=== PATIENT | male | born 1950 | race Caucasian/White ===

== ENCOUNTER 2017-09-28 08:20 | Emergency (ER) | payer MEDICARE ==
[~2017-09-28] VITALS: Ht 175.3 cm; Wt 72.6 kg
[2017-09-28] MEDS ORDERED: cloNIDine HCL 0.1 MG TABLET PO ONE (09:00)
[2017-09-28 09:04] LABS: BASO # 0.1 x10^3/uL (0.0-0.2); BASO % 1 % (0-3); EOS # 0.2 x10^3/uL (0.0-0.7); EOS % 3 % (0-3); HEMATOCRIT 44.7 % (39.0-53.0); HEMOGLOBIN 15.6 g/dL (13.0-17.5); LYMPH # 1.2 x10^3/uL (1.0-4.8); LYMPH % 20 % (24-48); MEAN CORPUSCULAR HEMOGLOBIN 35 pg (25-35); MEAN CORPUSCULAR HGB CONC 35 g/dL (31-37); MEAN CORPUSCULAR VOLUME 101 fL (79-100); MONO # 0.8 x10^3/uL (0.0-1.1); MONO % 12 % (0-9); NEUT % 64 % (31-73); PLATELET COUNT 212 x10^3/uL (140-400); RED BLOOD COUNT 4.44 x10^6/uL (4.30-5.70); RED CELL DISTRIBUTION WIDTH 13.5 % (11.5-14.5); WHITE BLOOD COUNT 6.2 x10^3/uL (4.0-11.0)
--- NOTE | 2017-09-28 09:16 | RAD ---
CHEST PA LATERAL History: Increased blood pressure, chest pain Comparison: None. Findings: The cardiomediastinal silhouette is normal. Pulmonary vasculature is normal. The lungs are clear. No pleural effusion or pneumothorax is seen. There is no acute bone abnormality. IMPRESSION: No acute cardiopulmonary process. Electronically signed by: Sukumar Santiago MD (09/28/2017 9:12 AM) [id number]
[2017-09-28 09:18] LABS: ALBUMIN 3.8 g/dL (3.4-5.0); ALBUMIN/GLOBULIN RATIO 1.1 (1.0-1.7); CALCIUM 9.3 mg/dL (8.5-10.1); CREATININE 1.5 mg/dL (0.7-1.3); TOTAL BILIRUBIN 1.4 mg/dL (0.2-1.0); TOTAL PROTEIN 7.3 g/dL (6.4-8.2)
[2017-09-28 10:06] VITALS: BP 136/80
--- NOTE | 2017-09-28 10:36 | ED.ADGEN ---
Past History Past Medical History: Hypertension Past Surgical History: No Surgical History Alcohol Use: Occasionally Drug Use: None Adult General Chief Complaint Chief Complaint Chest pain, headache HPI HPI Patient is a 67-year-old male with history of hypertension who presents with headache, chest pressure and high blood pressure. Patient states his blood pressure is been elevated despite the past several weeks despite compliance with pressure was medication. This morning, the patient checked his blood pressure which was greater than1 90/100. Patient took his blood pressure medication drove to work and feels shaky and dizzy. He then developed mild posterior headache and chest pressure. Patient then took an extra dose medication and proceeded to recheck his blood pressure several times. Reports blood reading as high as 240/120 prompting him to come to the emergency department. Symptoms have improved prior to ED arrival. No other acute symptoms or complaints. Patient is a nonsmoker, nondiabetic, and denies history of coronary disease. Review of Systems Review of Systems ROS as per HPI All other systems were reviewed and found to be within normal limits, except as documented in this note. Current Medications Current Medications Current Medications Medications (Trade) Dose Ordered Sig/Ollie Start Time Stop Time Status Last Admin Dose Admin Clonidine HCl (Catapres) 0.2 mg 1X ONCE 09/28/17 09:00 09/28/17 09:01 DC 09/28/17 08:44 0.2 MG Allergies Allergies Allergies Coded Allergies Type Severity Reaction Last Updated Verified No Known Drug Allergies 09/28/17 No Physical Exam Physical Exam Constitutional: Well developed, well nourished, no acute distress, non-toxic appearance. [] HENT: Normocephalic, atraumatic, bilateral external ears normal, oropharynx moist,, nose normal. [] Eyes: PERRLA, EOMI, conjunctiva normal, no discharge. [] Neck: Normal range of motion, no tenderness, supple, no stridor. [] Cardiovascular:Heart rate regular rhythm, no murmur or gallops clicks or rubs. Negative Homans signs. I told him I have a set I told him I assured him that [] Lungs & Thorax: Patient's nonlabored mildly diminished but otherwise clear.[] Abdomen: Bowel sounds normal, soft, no tenderness. [] Skin: Warm, dry. [] Back: No tenderness. [] Extremities: No tenderness. [] Neurologic: Alert and oriented X 3, normal motor function, normal sensory function, no focal deficits noted. [] Psychologic: Affect normal, judgement normal, mood normal. [] Current Patient Data Vital Signs Vital Signs Date Time Temp Pulse Resp B/P (MAP) Pulse Ox O2 Delivery O2 Flow Rate FiO2 09/28/17 10:06 57 20 136/80 (98) 97 Room Air 09/28/17 08:20 98.2 Lab Results Laboratory Tests Test 09/28/17 08:47 White Blood Count 6.2 x10^3/uL (4.0-11.0) Red Blood Count 4.44 x10^6/uL (4.30-5.70) Hemoglobin 15.6 g/dL (13.0-17.5) Hematocrit 44.7 % (39.0-53.0) Mean Corpuscular Volume 101 fL (79-100) H Mean Corpuscular Hemoglobin 35 pg (25-35) Mean Corpuscular Hemoglobin Concent 35 g/dL (31-37) Red Cell Distribution Width 13.5 % (11.5-14.5) Platelet Count 212 x10^3/uL (140-400) Neutrophils (%) (Auto) 64 % (31-73) Lymphocytes (%) (Auto) 20 % (24-48) L Monocytes (%) (Auto) 12 % (0-9) H Eosinophils (%) (Auto) 3 % (0-3) Basophils (%) (Auto) 1 % (0-3) Neutrophils # (Auto) 4.0 x10^3uL (1.8-7.7) Lymphocytes # (Auto) 1.2 x10^3/uL (1.0-4.8) Monocytes # (Auto) 0.8 x10^3/uL (0.0-1.1) Eosinophils # (Auto) 0.2 x10^3/uL (0.0-0.7) Basophils # (Auto) 0.1 x10^3/uL (0.0-0.2) D-Dimer (Hanna) 0.74 mg/L (0.00-0.50) H Sodium Level 139 mmol/L (136-145) Potassium Level 5.0 mmol/L (3.5-5.1) Chloride Level 102 mmol/L (98-107) Carbon Dioxide Level 32 mmol/L (21-32) Anion Gap 5 (6-14) L Blood Urea Nitrogen 18 mg/dL (8-26) Creatinine 1.5 mg/dL (0.7-1.3) H Estimated GFR (Cockcroft-Gault) 47.0 BUN/Creatinine Ratio 12 (6-20) Glucose Level 101 mg/dL (70-99) H Calcium Level 9.3 mg/dL (8.5-10.1) Total Bilirubin 1.4 mg/dL (0.2-1.0) H Aspartate Amino Transferase (AST) 41 U/L (15-37) H Alanine Aminotransferase (ALT) 34 U/L (16-63) Alkaline Phosphatase 43 U/L (46-116) L Troponin I Quantitative < 0.017 ng/mL (0-0.055) Total Protein 7.3 g/dL (6.4-8.2) Albumin 3.8 g/dL (3.4-5.0) Albumin/Globulin Ratio 1.1 (1.0-1.7) EKG EKG [EKG: sinus bradycardia, no acute ST-T wave changes] Radiology/Procedures Radiology/Procedures [Chest x-ray: No acute cardiopulmonary disease] Course & Med Decision Making Course & Med Decision Making Pertinent Labs and Imaging studies reviewed. (See chart for details) [Symptoms significantly improved with treatment off blood pressure. Patient was much more relaxed is breathing and resting comfortably. EKG, troponin reassuring. D-dimer elevated. He denies back pain, and abdominal pain. Clinical suspicion for dissection is low. Hospital admission for further workup and cardiac evaluation offered and declined. Patient prefers to follow-up with his primary care provider as arranged outpatient cardiac testing. Return precautions reviewed. Patient verbalizes understanding. Final Impression Final Impression [1. Accelerate hypertension 2. Chest pain 3. Headache] Dragon Disclaimer Dragon Disclaimer This electronic medical record was generated, in whole or in part, using a voice recognition dictation system. NILSA LOUISE DO Sep 28, 2017 10:36
--- NOTE | 2017-09-28 15:52 | EKG ---
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
== END 2017-09-28 10:20 | disposition home or self-care (01) ==
LOC: ER 08:20
DX: I10 Essential (primary) hypertension (principal); R42 Dizziness and giddiness
CPT/HCPCS: 36415; 71046; 80053; 84484; 85025; 85379; 93005; 99285-25

== ENCOUNTER → 2019-09-10 | Outpatient (CLI) | payer MEDICARE ==
[2019-09-10 15:02] LABS: ALBUMIN 4.1 g/dL (3.4-5.0); ALBUMIN/GLOBULIN RATIO 1.2 (1.0-1.7); CREATININE 1.5 mg/dL (0.7-1.3); GFR 46.7; TOTAL BILIRUBIN 1.6 mg/dL (0.2-1.0); TOTAL PROTEIN 7.5 g/dL (6.4-8.2)
[2019-09-10 15:07] LABS: POTASSIUM 2.6 mmol/L (3.5-5.1)
== END ==
LOC: LAB 13:44
PROVIDERS: ATTEND Family Medicine
DX: I10 Essential (primary) hypertension (principal)
CPT/HCPCS: 36415; 80053

== ENCOUNTER → 2020-01-28 | Outpatient (CLI) | payer MEDICARE ==
--- NOTE | 2020-01-28 15:32 | RAD ---
EXAMINATION: XR HAND_RIGHT 3 VIEWS CLINICAL HISTORY: Hand pain TECHNIQUE: XR HAND_RIGHT 3 VIEWS Number of Images/Views: 3 COMPARISON: None FINDINGS: Mild degenerative changes first CMC joint. No acute fracture. Small corticated ossicle along the dors al wrist, possibly related to remote trauma. 2 small thin curvilinear densities in the volar soft tis sues of the long finger at the proximal and distal aspects of the third proximal phalanx, consistent with retained foreign bodies. IMPRESSION: No acute osseous abnormality. Mild degenerative changes first CMC joint. Findings consistent with 2 small retained foreign bodies in the volar long finger as described. Electronically signed by: Crow Matt DO (01/28/2020 3:29 PM) [id number]
== END ==
LOC: DXRAD 13:49
PROVIDERS: ATTEND Orthopaedic Surgery
DX: M19.041 Primary osteoarthritis, right hand (principal)
CPT/HCPCS: 73130